=== PATIENT | male | born 1975 | race Caucasian/White ===

== ENCOUNTER 2025-02-14 15:56 | Inpatient (IN) | payer SELFPAY ==
[~2025-02-14] VITALS: Ht 177.8 cm; Wt 59.4 kg
[2025-02-14 16:14] VITALS: BP 129/91
[2025-02-14] MEDS ORDERED: cloNIDine Hydrochloride 0.1 MG TAB PO ONE (16:25)
[2025-02-14] MEDS ORDERED: IBUPROFEN 800 MG TAB PO ONE (16:25)
[2025-02-14] MEDS ORDERED: BUPRENORPHINE HCL/NALOXONE 8 MG-2 MG SL TABLET SL ONE (16:25)
[2025-02-14] MEDS ORDERED: Metoclopramide Hydrochloride 10 MG/2 ML VIAL IV ONE (17:20)
[2025-02-14] MEDS ORDERED: diphenhydrAMINE hydrochloride 50 MG/ML VIAL IV ONE (17:20)
[2025-02-14] MEDS ORDERED: SODIUM CHLORIDE 0.9% 1,000 ML IV ONE (17:20)
[2025-02-14 17:32] LABS: BASO % 0.2 % (0.0-1.0); EOS # 0.1 10*3/uL (0.0-0.4); HEMATOCRIT 47.2 % (42.0-52.0); MEAN CELL VOLUME 88.4 fl (80.0-94.0); MEAN CORPUSCULAR HGB 31.6 pg (27.0-31.0); MEAN CORPUSCULAR HGB CONC 35.8 g/dl (33.0-37.0); MEAN PLATELET VOLUME 8.9 fl (9.6-12.3); MONO # 0.9 10*3/uL (0.1-1.0); MONO % 7.8 % (3.0-9.0); NEUT # 7.1 10*3/uL (2.3-7.9); NEUT % 62.8 % (47.0-73.0); PLATELET COUNT AUTOMATED 362 10*3/uL (130-400); RED BLOOD COUNT 5.34 10*6/uL (4.50-5.90); WHITE BLOOD COUNT 11.2 10*3/uL (4.8-10.8)
[2025-02-14 17:48] LABS: BUN 15 mg/dl (9-23); CHLORIDE 97 mmol/L (98-107); POTASSIUM 3.4 mmol/L (3.4-5.1)
[2025-02-14] MEDS ORDERED: ACETAMINOPHEN 325 MG TAB PO PRN (18:35)
[2025-02-14] MEDS ORDERED: ACETAMINOPHEN 650 MG SUPP R PRN (18:35)
[2025-02-14] MEDS ORDERED: BISACODYL 10 MG SUPP R PRN (18:35)
[2025-02-14] MEDS ORDERED: BISACODYL 5 MG TAB PO PRN (18:35)
[2025-02-14] MEDS ORDERED: Magnesium Hydroxide 30 ML UDC PO PRN (18:35)
[2025-02-14] MEDS ORDERED: rOPINIRole Hydrochloride 0.25 MG TAB PO PRN (18:40)
[2025-02-14] MEDS ORDERED: METHOCARBAMOL 750 MG TAB PO PRN (18:40)
[2025-02-14] MEDS ORDERED: diphenhydrAMINE hydrochloride 50 MG/ML VIAL IV PRN (18:40)
[2025-02-14] MEDS ORDERED: Dicyclomine Hydrochloride 20 MG TAB PO PRN (18:40)
[2025-02-14] MEDS ORDERED: hydrOXYzine 50 MG CAP PO PRN (18:40)
[2025-02-14 20:45] VITALS: BP 123/90
[2025-02-14 20:53] VITALS: BP 131/81
[2025-02-14] MEDS ORDERED: BUPRENORPHINE HCL/NALOXONE 2 MG/0.5 MG SL TAB SL SCH (22:00)
[2025-02-14] MEDS ORDERED: Nicotine 21 MG PATCH T SCH (22:47)
[2025-02-14 23:57] VITALS: BP 110/77
[2025-02-15 04:15] LABS: BASO % 0.2 % (0.0-1.0); EOS # 0.1 10*3/uL (0.0-0.4); EOS % 0.8 % (1.0-4.0); HEMATOCRIT 40.5 % (42.0-52.0); MEAN CORPUSCULAR HGB 31.5 pg (27.0-31.0); MEAN CORPUSCULAR HGB CONC 34.6 g/dl (33.0-37.0); MEAN PLATELET VOLUME 8.8 fl (9.6-12.3); MONO # 0.9 10*3/uL (0.1-1.0); MONO % 8.9 % (3.0-9.0); NEUT # 4.7 10*3/uL (2.3-7.9); NEUT % 45.4 % (47.0-73.0); PLATELET COUNT AUTOMATED 269 10*3/uL (130-400); RED BLOOD COUNT 4.45 10*6/uL (4.50-5.90); RED CELL DISTRI WIDTH 12.4 % (0-14.5); WHITE BLOOD COUNT 10.4 10*3/uL (4.8-10.8)
[2025-02-15 04:31] LABS: ACT PARTIAL THROMBO TIME 26.3 SECONDS (20.0-32.1)
[2025-02-15 04:42] LABS: ALKALINE PHOSPHATASE 59 U/L (46-116); BUN 15 mg/dl (9-23); CHLORIDE 100 mmol/L (98-107); CHOLESTEROL 143 mg/dL (<200); FREE T4 1.21 ng/dl (0.89-1.76); LDL CHOLESTEROL 76 mg/dL (9-159); POTASSIUM 3.5 mmol/L (3.4-5.1); SGPT/ALT 14 U/L (5-49); TOTAL PROTEIN 6.6 gm/dL (6.0-8.0); TRIGLYCERIDES 146 mg/dl (<150)
[2025-02-15 04:55] LABS: VITAMIN D, 25-HYDROXY 52.4 ng/mL (30-100)
[2025-02-15 08:00] VITALS: BP 130/78
[2025-02-15] MEDS ORDERED: Enoxaparin Sodium 40 MG/0.4 ML SYR SC SCH (10:00)
[2025-02-15 12:00] VITALS: BP 113/83
[2025-02-15 16:00] VITALS: BP 140/89
[2025-02-15] MEDS ORDERED: Loperamide Hydrochloride 2 MG CAP PO ONE (18:55)
[2025-02-15 21:00] VITALS: BP 132/78
[2025-02-15] MEDS ORDERED: BUPRENORPHINE HCL/NALOXONE 2 MG/0.5 MG SL TAB SL SCH (22:00)
[2025-02-16] VITALS: BP 130/67
[2025-02-16 08:00] VITALS: BP 142/97
[2025-02-16 12:00] VITALS: BP 128/82
[2025-02-16 16:00] VITALS: BP 155/96
[2025-02-16 20:00] VITALS: BP 147/94
[2025-02-17] VITALS: BP 141/105
[2025-02-17] MEDS ORDERED: BUPRENORPHINE HCL/NALOXONE 2 MG/0.5 MG SL TAB SL SCH (02:00)
== END 2025-02-17 11:08 | disposition home or self-care (01) | DRG 897 ==
LOC: ED 15:56 → 4E 18:04 → EDHOLD 18:04 → 4E 20:39
PROVIDERS: Emergency Medicine; ADMIT Internal Medicine; ATTEND Internal Medicine
DX: F11.23 Opioid dependence with withdrawal (principal); E87.1 Hypo-osmolality and hyponatremia; R65.10 Systemic inflammatory response syndrome (SIRS) of non-infectious origin without acute organ dysfunction; E87.8 Other disorders of electrolyte and fluid balance, not elsewhere classified; F17.210 Nicotine dependence, cigarettes, uncomplicated; R73.9 Hyperglycemia, unspecified; E83.52 Hypercalcemia; Z71.6 Tobacco abuse counseling

== ENCOUNTER 2025-05-27 21:03 | Emergency (ER) | payer OTHER ==
[~2025-05-27] VITALS: Ht 177.8 cm; Wt 68.0 kg
[2025-05-27] MEDS ORDERED: SUBOXONE 4 MG-1 EACH SL (21:14)
[2025-05-27] MEDS ORDERED: SODIUM CHLORIDE 0.9% 1,000 ML IV SCH (21:50)
[2025-05-27] MEDS ORDERED: HYDROmorphONE Hydrochloride 0.5 MG/0.5 ML SYRINGE IV ONE (21:50)
[2025-05-27 22:06] LABS: BASO # 0.0 10*3/uL (0.0-0.1); BASO % 0.2 % (0.0-1.0); EOS # 0.1 10*3/uL (0.0-0.4); EOS % 0.5 % (1.0-4.0); MEAN CELL VOLUME 94.4 fl (80.0-94.0); MEAN CORPUSCULAR HGB 32.3 pg (27.0-31.0); MEAN PLATELET VOLUME 9.2 fl (9.6-12.3); MONO # 1.2 10*3/uL (0.1-1.0); MONO % 10.4 % (3.0-9.0); NEUT # 7.5 10*3/uL (2.3-7.9); NEUT % 64.2 % (47.0-73.0); NUCLEATED RED BLOOD CELL 0.0 % (0.0-0.0); NUCLEATED RED BLOOD CELL 0.0 10*3/uL (0.0-0.0); PLATELET COUNT AUTOMATED 282 10*3/uL (130-400); RED CELL DISTRI WIDTH 11.9 % (0-14.5)
[2025-05-27 22:12] LABS: BILIRUBIN Negative (Negative); BLOOD 2+ (Negative); CLARITY Clear (Clear); COLOR Yellow (Yellow); KETONE Trace (Negative); LEUKO ESTERASE Trace (Negative); NITRITE Negative (Negative); PH 7.0 (4.5-8.0); SPECIFIC GRAVITY 1.015 (1.001-1.030); UROBILINOGEN 4.0 E.U./dl (0.0-1.0)
[2025-05-27 22:22] LABS: BUN 15 mg/dl (9-23)
[2025-05-27 22:34] LABS: RBC 41-50 rbc/hpf (0-2); WBC 16-20 wbc/hpf (0-5)
[2025-05-27 22:35] LABS: BACTERIA TRACE
[2025-05-28] MEDS ORDERED: LEVOFLOXACIN750 M2 PO (00:16)
[2025-05-28] MEDS ORDERED: LEVOFLOXACIN 750 MG TAB PO ONE (00:20)
== END 2025-05-28 00:42 | disposition home or self-care (01) ==
LOC: ED 21:03
PROVIDERS: Nurse Practitioner Family
DX: J18.9 Pneumonia, unspecified organism (principal); R31.9 Hematuria, unspecified; K44.9 Diaphragmatic hernia without obstruction or gangrene; M54.50 Low back pain, unspecified; F17.210 Nicotine dependence, cigarettes, uncomplicated; K21.9 Gastro-esophageal reflux disease without esophagitis; Z79.899 Other long term (current) drug therapy